=== PATIENT | male | born 1995 ===

== ENCOUNTER 2017-08-08 19:01 | Inpatient (IN) | payer MEDICAID, OTHER ==
[~2017-08-08] VITALS: Ht 167.6 cm; Wt 70.5 kg
[2017-08-09] MEDS ORDERED: Benzocaine-Menthol Lozenge 2/Pkg PO PRN (03:20)
[2017-08-09] MEDS ORDERED: Magnesium Hydroxide 10 mL Oral Concentration PO PRN (03:20)
[2017-08-09] MEDS ORDERED: Alum-Mag Hydrox-Simeth 30 mL Suspension PO PRN (03:20)
--- NOTE | 2017-08-09 04:32 | NUR ---
Observations 1900- 0700 Pt arrived in the morning escorted by two police officers. Pt has bandage on foot and has an impaired gait. Pt appears guarded and paranoid. Belongings were documented. Pt escorted to room. Pt currently appears asleep in bed. Staff completed 15 min close observations a ordered. Addendum: 08/09/17 at 0617 by NAZARIO PETER [facility] At 0615 safety check, it was observed by this principal technical writer that pt is sitting in corner in room staring at ceiling unclothed. Pt has also taken off all bandages from foot at this time. Notified pt's RN.
[2017-08-09] MEDS ORDERED: BENZ2TAB7 PO (04:54)
[2017-08-09] MEDS ORDERED: OLAN10TA19 PO (04:55)
[2017-08-09] MEDS ORDERED: OLAN20TA16 PO (04:56)
[2017-08-09] MEDS ORDERED: HALO100V4 IM (05:00)
--- NOTE | 2017-08-09 06:25 | NUR ---
Admission Note Patient is a 21 year old gravely disabled involuntary male presenting to this unit with psychosis who came from [facility] ED in [facility]. He is on a 72 hour GREGORIO initiated at 1748 on 08/08/17. Patient was reported to have been acting strangely, "doing weird stuff...he kicked off his shoe and then licked his shoe" per grandmothers report to [facility] in [facility]. He was incoherent, talking fast, did not recognize grandmother. He had jumped over the bed and twisted his ankle, which was later confirmed fractured and patient was provided with a soft splint. He had wandered into a strangers apartment and was found sleeping there, LE was called and he was brought to the ED. Patients father reported that he has been off of his medications for approximately one week due to reported negative side effects. He has a history of schizophrenia and was on an LRA until the end of April 2017. He has a hx of prior psychiatric inpatient treatment at [facility], as well as one year at [facility]. While in restraints at [facility], patient was noted to be trying to bite the restraints and chew them off, not following directions, acting impulsively, agitated and not sleeping. Per [facility] report, it was noted that he was responding to internal stimuli and appeared to be hallucinating. UTox was positive for marijuana. Patient arrived on unit with LE escort and hospital security at 0250. He was provided juice and oriented to his room. He was guarded and suspicious towards staff, but cooperative when escorted to room. Patient is ambulatory and independent with ADLs. He was given Zyprexa 20 mg and Vistaril 50 mg at 0355 with little relief. As a result of patient being a poor historian, admission completed using collateral information. Admission paperwork needs to be signed by patient when more compensated.
[2017-08-09 09:59] VITALS: BP 124/80; PULSE 92; RESP 20
--- NOTE | 2017-08-09 11:55 | NUR ---
Lead Military Analyst D:The patient met the doctor and lead technical writer and stated they he believes he hurt his ankle by playing flag football. The patient was lying on his bed with his pants off during the interview and had delayed and garbled responses at times. He reports no ETOH, but marijuana use. The psychiatrist will be getting a hospitalist to further evaluate the patient's ankle for potential surgery. A:garbled speech, indifferent, confused, P: Monitor behavior, encourage program participation, stabilize medications
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
--- NOTE | 2017-08-09 13:53 | HP ---
[address] [address] HISTORY AND PHYSICAL PATIENT: SOLITARIO CHAN : 1995 MR#: [id number] ADMIT: 08/09/2017 JOB ID: [id number] INITIAL EVALUATION: IDENTIFICATION OF PATIENT: The patient is a 21-year-old male admitted via transfer from [facility] with noted significant concern of grave disability and significant psychoses. The patient reportedly has a long-term history of recent diagnosis of paranoid schizophrenia. CHIEF COMPLAINT: "I don't know why I am here." HISTORY OF PRESENT ILLNESS: As stated above, the patient is a 21-year-old male who reportedly was admitted under a petition to revoke with previous history of schizophrenia. The patient reportedly was brought to the emergency department per grandmother's report with odd and unusual behavior including taking off his shoe and licking it. He was unable to identify his grandmother. He reportedly has a history of a recent fractured ankle while playing flag football, and per report, orthopedic surgeons in [facility] have recommended surgical interventions which will be followed up this afternoon with hospitalists. The patient reportedly was often also being found in strangers apartments in his local apartment complex. Per documents: the patient has had a previous psychiatric history including admissions to [facility] and one year length of stay at [facility]. Evidently the patient had a positive U tox screening for THC only and on admission to the emergency department and was placed in four-point restraints after various attempts of elopement. During the course of restraint, he was attempting to bite through the restraints. The patient had been given doses of Zyprexa with significant improvement. This morning the patient was essentially unable to complete the interview. He was speaking [facility] with noted visual tracking throughout the course of conversation, responding to internal stimulus. He was sitting in his room half naked and when asked direct questions, the patient was unable to complete answers. He appears to be floridly psychotic and has been given doses of Zyprexa 10 mg q. a.m. and 20 mg q.h.s. with little relief. Records will be sent for with previous placement options in [facility] and [facility]. PAST MEDICAL HISTORY: Is substantial for no allergies. MEDICATIONS: Of current include: 1. Zyprexa 10 mg q. a.m., 20 mg q.h.s. 2. Cogentin 2 mg b.i.d. p.r.n. He has a current fracture of an ankle and the orthopedic surgeon business process consultant at [facility] in [facility] has recommended surgical intervention. Consultation will be obtained. Hospitalists will be consulted for further care. PAST PSYCHIATRIC HISTORY: Substantial for the above information. He is on a LRA at this time through the end of April. SOCIAL HISTORY: Currently the patient lives at home of his father. He does have a positive history for marijuana smoking on a daily basis. Other drug history is unknown at this time. Abuse history was not reviewed. FAMILY HISTORY: Unknown. DEVELOPMENT HISTORY: He indicated that he did obtain a GED in the past through a [employer] college in [place]. MENTAL STATUS EXAMINATION: As noted above, the patient is sitting in his room half clothed. He makes intermittent eye contact. He is visual tracking and unable to respond to direct questions. His speech is unintelligible, loose, disorganized and gibberish. His thought process shows evidence of random flight of ideas, loose and disorganized thinking, evidence of word salad, evidence of thought blocking. Thought content: There was no evidence of suicidal or homicidal ideation. No evidence of elopement since his arrival here. The patient does appear to be quite paranoid. He is actively hallucinating with both visual and auditory sensation. He was alert, unable to identify place. He identified that he believed that he was in [place]. Insight and judgment are deemed poor. IMPRESSION: AXIS I 1. Schizophrenia, paranoid type. 2. Substance use disorder, not otherwise specified. 3. Cannabis use disorder. AXIS II Deferred. AXIS III History of fractured ankle requiring surgical consultation. AXIS IV Stressors are noted for chronic mental health issues, chronic substance use issues. AXIS V Global assessment of functioning of current 20. PLANS: 1. Recommendations for continuation of scheduled doses of Zyprexa 10 mg q. a.m., 20 mg q.h.s., Ativan 1 mg q.4 hours p.r.n., Vistaril 50 mg q.4 hours p.r.n. 2. Consultation with orthopedic surgical team and hospitalist for further recommendation followup. MTDD
--- NOTE | 2017-08-09 14:35 | PCM.CONORT ---
Subjective Date of Surgery: Aug 09, 2017 Surgeon Admitting Provider:Nixon Hendricks DO Attending Provider:Nixon Hendricks DO Primary Care Physician:Other,Physician Other Provider:Luiza Yañez Reason for Consultation: right ankle fracture Allergy Allergies: Coded Allergies: No Known Allergies (Unverified , 08/09/17) Medications Benztropine Mesylate (Benztropine Mesylate) 2 Mg Tablet 2 MG PO BID (Reported) Last Taken: Unknown Dose on Unknown Date & Time Haloperidol Decanoate ( Haloperidol Decanoate) 100 Mg/1 Ml Vial 100 MG IM (Reported) Last Taken: Unknown Dose on 06/10/17 Olanzapine (Olanzapine) 10 Mg Tablet 10 MG PO DAILY (Reported) Last Taken: Unknown Dose on Unknown Date & Time Olanzapine (Olanzapine) 20 Mg Tablet 20 MG PO HS (Reported) Last Taken: Unknown Dose on Unknown Date & Time History History of ENT Problems?: No HEENT History: Denies:: Abnormal Airway Cataracts Difficult Intubation Dysphagia Glaucoma Hearing Problem Sinus Problem TMJ Denture Type: None Teeth Condition: Within Normal Limits Hx of Heart Problems?: No Cardiovascular History: Denies:: AICD Abdominal Aortic Aneurism Atrial Fibrillation Cardiac Surgery Chest Pain Congestive Heart Failure Coronary Artery Disease Edema Heart Murmur Hypertension Irregular Heartbeat Pacemaker Peripheral Vascular Rheumatic Fever Thrombophlebitis Valvular Heart Disease Hx of Respiratory Problem?: No Respiratory History: Denies:: Asthma COPD Chest Surgery Cough Dyspnea Emphysema Hemoptysis Oxygen Administration Pneumonia Pulmonary Embolism Tuberculosis Use of C-PAP Machine Use of Inhalers / NEBS Hx Neurologic Problems?: No Neurological History: Denies:: Alzheimer's Disease CVA Dementia Dizziness Headaches Multiple Sclerosis Parkinson's Disease Peripheral Neuropathy Seizures TIA Hx of GI Problems?: No Gastrointestinal History: Denies:: Cirrhosis Diverticulitis Gall Bladder Disease Gastroesphageal Reflux Gastrointestinal Bleeding Heartburn Hepatitis Hiatal Hernia Liver Disease Rectal Bleeding Hx of Problems?: No Genitourinary History: Denies:: HX of Hemodialysis Kidney Stones Urinary Tract Infection Male Hx: Denies:: Prostate Problems Scrotal Mass Testicular Surgery Skin History: Denies:: History Skin Disorders? Pressure Ulcers Hx Musculoskeletal Problems?: Yes Musculoskeletal History: Positive for:: Back Injury Degenerative Joint Fibromyalgia Joint Replacement Musculoskeletal Trauma Myasthenia Gravis Osteoarthritis Rheumatoid Arthritis Systemic Lupus Other History/Comment Saleem Bartlett is a 21 year old male patient who presents to the ER and a consult for orthopedic evaluation of the right ankle with ongoing symptoms was requested. The patient is schizophrenic and is poor historian and states that their pain is weird in nature and mild/moderate in severity localized to the medial aspect of the ankle without radiation. This has been progressing over the past few and may or may not be from playing football. He does not recall the injury. He has removed his splint and has been weight bearing. Moreover, the pain is exacerbated by activities, sometimes with walking. Rest seems to improve the symptoms. Patient reports no popping, no catching, noocking, or giving way. Previous treatment has included:splint which he has removed. There is no reports numbness, tingling, or weakness to the affected distal lower extremity. The patient denies any fever, chills, nausea, vomiting, chest pain, shortness of breath, or calf tenderness. Work/hobbies/sports include: none Hx of Psycho/Social Problems?: No Hx Surgeries?: No Hx Any Other Health Problems?: No Other History: Positive for:: Hospitalization (psychiatric) Denies:: Cancer Endocrine Disease Thyroid Disease History Blood Transfusions: Denies:: Accept Blood Products? Blood Transfuse Reaction Blood Transfusions Hx Diabetes: No Hx Substance Use: Yes Objective Exam Vital Signs & I/O Vital Sign- Last 8 Hours Date Time Temp Pulse Resp B/P Pulse Ox O2 Delivery O2 Flow Rate FiO2 08/09/17 09:59 36.6 92 20 124/80 Review of Systems: Constitutional: Negative, except as otherwise mentioned in the history above. Ophthalmologic: Negative, except as otherwise mentioned in the history above. Cardiovascular: Negative, except as otherwise mentioned in the history above. Respiratory: Negative, except as otherwise mentioned in the history above. Gastrointestinal: Negative, except as otherwise mentioned in the history above. Genitourinary: Negative, except as otherwise mentioned in the history above. Musculoskeletal: Negative, except as otherwise mentioned in the history above. Neurological: Negative, except as otherwise mentioned in the history above. Psychiatric: Negative, except as otherwise mentioned in the history above. Hematologic/Lymphatic: Negative, except as otherwise mentioned in the history above. Allergic/Immunologic: Negative, except as otherwise mentioned in the history above. H&P Surgical Exam Exam Musculoskeletal: CONST: WD,WN, NAD, A+OX3 OCULAR: EOMI, no conjunctivitis/icterus ENT: no deformities, scars or lesions CARDIAC: Pulse is regular. No cyanosis,clubbing,edema RESP: regular,unlabored MSK: normal light touch SPN/DPN/TN distributions. 5/5 DF/PF/Inv/Ev, 2+ DP right Foot/Ankle - scars, + ecchymosis, +swelling, -erythema, - atrophy or asymmetry. TTP none alignment- neutral, gait: antalgic, edema- minimal ROM Strength/ Pain 20 deg DF 5/5 - 50 deg PF 5/5 - 35 deg Inv 5-/5 - 15 deg Ev 5-/5 - + effusion, +painful arc, -crepitus Signs instability on anterior/internal rotation drawer: - instability on anterior/external rotation drawer:- syndesmotic squeeze: - Prakash's: - Landa's: - Tinel's: - single limb heel rise: + patella tilt: - Additional Information 3 view xray demonstrates a displaced medial malleolus fracture H&P Preop Plan Impression right Ankle fracture Problems: Plan recommend 2 view xray of the tib/fib to r/o maisonneuve fracture Nonweightbearing to the affected extremity, discussed complications associated with noncompliance- patient does not seem to comprehend/care recommend walking boot but to remain nonweightbearing, recommend crutches or roller Pain control No acute surgical intervention indicated at this time Follow-up in clinic in 1 week to allow soft tissue swelling to resolve and discuss possible surgical intervention pt can f/u in clinic as outpatient Please keep the affected extremity elevated when possible. You may use ice and/or heat as needed for comfort. All questions and concerns were addressed. Please feel free to call with any further questions, comments, and/or concerns. Casimiro Marcial MD Aug 09, 2017 14:34
--- NOTE | 2017-08-09 15:40 | DRSVH ---
PROCEDURE: X-RAY RIGHT ANKLE, MINIMUM THREE VIEWS ([id number]) INDICATIONS: Recent Right Medial Malleolar Fracture TECHNIQUE: 3 views of the ankle were acquired. COMPARISON: None. FINDINGS: Bones: Intra-articular fracture involves the medial malleolar base with minimal lateral and moderate anterior displacement of the distal fracture component. No additional fracture seen. Soft tissues: No tibiotalar joint effusion. Achilles tendon appears normal. IMPRESSION: Displaced medial malleolar base fracture. Dictated by: Farooq Mobley Crow Interpreted: Jesi Simms MD on 08/09/2017 at 15:38 Transcribed by: TATIANNA on 08/09/2017 at 15:39 Approved by: Jesi Simms M.D. on 08/09/2017 at 17:31
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
--- NOTE | 2017-08-09 18:48 | NUR ---
[facility] Day Shift Pt has a difficult time maintaining behavioral control throughout the shift. Pt affect appears flat, blunt. Pt has a difficult time following instruction and frequently requires redirection. Pt frequently attempts to enter the hallway/dining room without proper clothing (naked, half naked, wearing a shirt for pants). Pt appears to have difficulty retaining information and tracking during conversations. Pt occasionally attempts to enter other pt's rooms. Pt does has not been hostile with or aggressive with staff or peers, but is occasionally intrusive during interactions. Pt occasionally engages in bizarre physicality. Pt passively attended group activities throughout the shift. Pt attended all meals and ate approx 10-30% of all meals.
--- NOTE | 2017-08-09 20:21 | NUR ---
Foot pain P: Pt requests ibuprofen for his foot I: When RN came down to the room with the ibuprofen, the pt stated, "I'm too tired to take it. Come back in 30 min." RN told the patient that if he wanted ibuprofen later tonight, then he would have to come speak to the nurse. E: Pt turned his head away. Eyes are closed.
--- NOTE | 2017-08-09 21:42 | DRSVH ---
PROCEDURE: X-RAY RIGHT TIBIA/FIBULA, TWO VIEWS ([id number]) INDICATIONS: maisonneuve fracture TECHNIQUE: 2 views of the tibia and fibula were acquired. COMPARISON: [facility], CR, XR ANKLE 3VW RT, 08/09/2017, 15:20. FINDINGS: Bones: There is a minimally displaced medial malleolar fracture. Intra-articular extension is present . Soft tissues: No suspicious soft tissue calcifications or masses. IMPRESSION: Minimally displaced intra-articular medial malleolar fracture. Dictated by: Estrellita Sarmiento M.D. on 08/09/2017 at 21:40 Approved by: Estrellita Sarmiento M.D. on 08/09/2017 at 21:41
[2017-08-10] MEDS: LORazepam 1 mg Tablet PO PRN ×2 (04:39→11:43)
--- NOTE | 2017-08-10 05:36 | NUR ---
Nursing Note Partner Integration Planner 9pm-7am Patient in room at start of shift. He came out to hallway in just his boxers and was seen standing at the door to another patient's room. Staff redirected patient to his room, brought him some clean scrubs to put on and requested that he wear the scrubs if he comes out of his room and was reminded to not enter other patient rooms. Patient initially appeared confused as to why scrubs were given to him and was mumbling and nonsensical, but after being told again, he agreed to wear scrubs if coming out of room. Patient also appeared to be responding to internal stimuli, talking to unseen persons and becoming increasingly agitated with them. He was knocking on doors and windows, throwing punches in the air and raising his voice. Patient's agitation was not directed toward staff. He was given Ambien 5 mg and prn Vistaril 50 mg at 0400, with no relief. He was also given prn Ativan 1 mg at 0439 with no effect. Pt monitored q 15 minutes for safety, location and accountability.
--- NOTE | 2017-08-10 09:24 | NUR ---
Seclusion Pt secluded @ 2372. Order obtained from Dr Hendricks @ 9188. Pt threw coffee against the wall, attempting to climb the unit door, wandering into other patients' rooms. Pt not responsive to redirection. Pt escorted to seclusion by show of force. He received morning medications with no effect. Pt stated he was attempting to find the "Truong Ring for a girl and I am bored."
[2017-08-10] MEDS ORDERED: Benztropine 1 mg/mL 2 mL Inj ONE (10:01)
[2017-08-10] MEDS: Benztropine 1 mg/mL 2 mL Inj IM PRN ×4 (10:11→22:14)
[2017-08-10] MEDS: Haloperidol 5 mg/mL Inj IM PRN ×3 (10:11→22:30)
[2017-08-10 12:00] VITALS: BP 138/73; PULSE 120; RESP 22
--- NOTE | 2017-08-10 12:19 | NUR ---
4 point restraints Pt throwing himself into the rhodes and hitting rhodes with his fist. Pt responding to internal stimuli. Pt expressing delusional thought per staff report he believes he is in a video game. Pt not responsive to attempts to de-escalate. Pt place into 4 point restraints @ 1020. Order obtained from Dr Hendricks at said time. Pt given emergent medication of IM Haldol 5mg/Ativan 1mg/Cogentin 1mg. Two separate injections received in both the right and left VL. Face to face observation. Q 15" circulation checks, ROM. Pt fighting restraints. Pt offered to toilet but declined. He accepted water and Ativan 1mg po prn an hour after initial restraint. He continues to respond to internal stimuli and maintains delusional thought content. Unable to debrief d/t psychosis. Pt continues in 4 pt restraints. Addendum: 08/10/17 at 1517 by BRIGIDA AARON RN 1420 Restraints continued. Order obtained from Dr Hendricks. Pt continues to respond to internal stimuli. He continues to fight and pull at restraints. He urinated all over himself. Staff assisted in clean up and provided clean clothing. Pt offered to toilet/fluids/food Q 2 hours but he has declined.
--- NOTE | 2017-08-10 12:52 | NUR ---
Apparatus Cleaner D:The patient was placed in seclusion and later restraints for self harm behaviors. He was trying to climb the rhodes of the seclusion room and eating scabs off his skin. The psychiatrist reviewed his [facility] chart, and believes he is at his baseline due to his 'spice' usage. The singer songwriter and and psychiatrist spoke to the patients father (Willy Bartlett: [phone]). His father would like him to discharge to his care and continue living with him. A:anxious and confused P:Monitor behavior, stabilize medications, encourage appropriate behaviors Addendum: 08/10/17 at 1304 by ANSHU STEWART RN Patient's father (Willy Bartlett) will pick the patient up on between 12:00-2:00pm for discharge.
--- NOTE | 2017-08-10 14:00 | PROG NOTE ---
[address] [address] PROGRESS NOTE PATIENT: SOLITARIO CHAN : 1995 MR#: [id number] ADMIT: 08/09/2017 JOB ID: [id number] DATE: 08/10/2017 CHIEF COMPLAINT: "I just wanna get out of here." This per patient report in reference to interview collected through the seclusion room. HPI: The patient reportedly has shown significant continued decompensation with noted gibberish language, attempting to self-harm by ripping off his scab, running into rhodes, hitting his head . He reportedly was attempting to ingest his skin and scabs during the process of seclusion. He has shown significant limited response to medications including Zyprexa 10 mg q. a.m. and 20 mg q.h.s. The patient reportedly has received IM injections of Haldol, Ativan, Cogentin and continues to show significant loose and disorganized presentation. I did speak with the father via teleconference along with the ammunition supervisor, Leti Voss, and obtained previous history. Per report the patient does have a guardian assigned to the father who is also the payee. The patient reportedly after his one year of residence at [facility] resided in a long-term for approximately three months and later moved into the home with the father. The father indicated that the patient did elect to discontinue his medications due to concerns about side effects within the past two weeks and father states that he rapidly decompensated. He did receive his injection of Haldol Decanoate within the past week of doses of 200 mg , but the father indicated that he essentially feels that the Zyprexa has too many side effects. I have discussed with father implementation of scheduled doses of Haldol in addition to his injections and I do feel the patient is more than likely a rapid metabolizer, based on review of [facility] labs etc. Discussion was held with the father about the plan and intent to discharge the patient back to father's care. There was agreement and feeling that the patient is not a likely candidate to benefit from continued hospitalization, and would do best in his own environment with father. I do feel that the patient could be maintained in a less restrictive model with continuation of outpatient interventions provided by his community based psychiatrist with continuation of Haldol decanoate and further titration of oral doses of Haldol if so warranted. The patient's father did agree and stated that he will be able to pick him up tomorrow. OBJECTIVE: On mental status examination, as noted above, the patient is quite loose, disorganized. Seen running into rhodes and showing response to internal stimulus. He is seen during the process of seclusion and later restraint. He was not combative but showed significant imminent danger to himself by running into rhodes as if he was in a video game. His presentation is that of acute paranoia psychoses. He is actively hallucinating and responding to internal stimulus. There was no evidence of suicidal ideation, intent, or plan. He was alert, disoriented. Insight and judgment are deemed poor. PHYSICAL EXAMINATION: All vital signs are current. Temperature is 36.6, pulse 92, respirations 20, BP 124/80. MEDICATION REVIEW: Includes: Scheduled doses of Zyprexa 10 mg q. a.m., 20 mg q.h.s. He did receive Haldol Decanoate within the past five days of 200 mg. Haldol will be scheduled at 10 mg b.i.d. He has received p.r.n. doses of Ativan, Haldol and Cogentin. ASSESSMENT: AXIS I 1. Schizophrenia, paranoid type. 2. Polysubstance use disorder including cannabis and spice. AXIS II Deferred. AXIS III None. AXIS IV Stressors are noted for chronic substance use of prior, significant history of chronic mental health issues. AXIS V Global assessment of functioning of current 35. PLANS: 1. Recommendations to discharge to the care of the father with continuation of least restrictive model of community based mental health services including medication management, case management. 2. Implementation of Haldol scheduled 10 mg b.i.d., Cogentin 1 mg b.i.d. as well as continuation of Haldol decanoate. 3. Recommendations for continuation of Zyprexa 10 mg q. a.m. and 20 mg q.h.s., however, consideration of discontinuation based on the patient's history of noncompliance due to significant side effects will be deferred to his outpatient psychiatrist. LILIAM
[2017-08-10] MEDS ORDERED: LORazepam 1 mg Tablet PO PRN (15:20)
--- NOTE | 2017-08-10 17:20 | PCM.PNMED ---
Subjective Date of Service Aug 10, 2017 Subjective Pt has been walking on foot despite education to avoid weightbearing. Exam Vital Signs Vital Sign - Last Date Time Temp Pulse Resp B/P Pulse Ox O2 Delivery O2 Flow Rate FiO2 08/09/17 09:59 36.6 92 20 124/80 Exam General: agitated, 4 point restraints. Confused, rambling answers, tangential thought Head: NC/AT Mouth: Mouth Normal, Mucous Membr Moist/[place] Abdomen: Non-tender, Non-distended, No masses Musculoskeletal: Normal Range of Motion, Ankle (Pain Medial Surface, with swelling and bruising along medial surface. ) Extremities: Tenderness/Swelling Noted (R Ankle Medial Surface) IVs and Medications Medications Reviewed: Medications were reviewed in detail Lab and Diagnostics X-Rays, CTs and MRIs 08/09/17 X-RAY RIGHT ANKLE, MINIMUM THREE VIEWS Bones: Intra-articular fracture involves the medial malleolar base with minimal lateral and moderate anterior displacement of the distal fracture component. No additional fracture seen. Soft tissues: No tibiotalar joint effusion. Achilles tendon appears normal. IMPRESSION: Displaced medial malleolar base fracture. 08/09/17 X-RAY RIGHT TIBIA/FIBULA, TWO VIEWS Bones: There is a minimally displaced medial malleolar fracture. Intra- articular extension is present. Soft tissues: No suspicious soft tissue calcifications or masses. IMPRESSION: Minimally displaced intra-articular medial malleolar fracture. Assessment & Plan 31-year-old male history of Schizophrenia off medications, marijuana use admitted to [facility] mental health for acute psychosis and with finding displaced R medial malleolus fracture confirmed on X-Ray. Displaced R medial malleolus fracture, poa, active Unclear exactly when sustained injury. Complicated by pt's non-adherence due to Psychosis. Consulted Ortho, Dr. Casimiro Marcial. No acute surgical intervention indicated at this time. 2 view xray of the tib/fib- no fracture. Recommend walking boot, pt non-adherent to boot. Encourage to remain nonweightbearing, recommend crutches or roller. Will need to follow-up with Orthopedic Surgery, Dr. Casimiro Marcial, in 1 week to allow soft tissue swelling to resolve and discuss possible surgical intervention. Continue Ibuprofen for pain. Upon discharge, spoke with father about making above follow up appointment and also buying Crutches so patient can avoid weight bearing until seen by Garrison Pearson MD Aug 10, 2017 17:20
--- NOTE | 2017-08-10 18:37 | NUR ---
Evening Nurse Note: Pt In 4 pt restraints in the seclusion room with the door open at the beginning of the shift. Pt monitored q15 min for circulation and safety with a 1:1 sitter. Pt checked by RN q2hr, for good circulation, pulses, capillary refill on fingers and toes. Pt had arms and legs released q2hr for ROM and offered bathroom and drinks of water. Pt continues to bang wrists on bed, mumble incoherently and thrash around, but has fallen asleep a couple of times about 10 minutes each time, only to wake up and yell again.
[2017-08-10 18:59] VITALS: BP 138/73; PULSE 120; RESP 22
--- NOTE | 2017-08-11 00:48 | NUR ---
seclusion note nursing 11-7 s- yes. what will you do. o- at 2245 patient is in 4 point restraint with one to one staff direct observation and q 15 minute assessments. appears to exhaust himself and rest quietly then wake agitated and incoherent fighting restraints. is unable to effectively express his needs beyond short responses giving mostly grunts, mutters and mumbles. at 2345 accepted 120 ml of water, displayed adequate rom, declined the toilet. accepted release of right foot at midnight. continues to cycle calm to agitated in 10 to 15 minute intervals. a- responding to internal stimuli, disoriented about situation, unable to display and maintain safe appropriate behavior for return to the open milieu. no apparent physical distress. p- attempt to reorient to his situation and behavioral expectations. maintain safety and assist with adl's. return to open milieu when behavior allows. dina Addendum: 08/11/17 at 0148 by JOANA EMMANUEL RN released left wrist restraint which he initially resisted but calmed and allow it with staff reassurance. declined fluids and toilet. able to reposition himself in a more comfortable position with a pillow and blanket. is currently resting quietly. dina Addendum: 08/11/17 at 0244 by JOANA EMMANUEL RN released left wrist at 0130. appears more comfortable. did not appear to understand attempt to debrief and encourage return to his room. complied with removal of restraints. is currently resting on bed with episodes of restlessness. remains in seclusion for safety to allow further assessment of behavior and ability to safely return to the open milieu. dina Addendum: 08/11/17 at 0246 by JOANA EMMANUEL RN this note was titled seclusion in error this is a restraint note with restraint ending at 0200. dina
--- NOTE | 2017-08-11 03:06 | NUR ---
seclusion nursing 11-7 s/o- dr. durant informed of patients condition and seclusion initiated at 0200. patient mutters unintelligibly or is unresponsive when staff tries to orient the patient or encourage return to his bed on the open unit. repositions self frequently on bed muttering to himself at times. has direct line of sight observation with one to one staffing. a- disorientated, disorganized, internally preoccupied, no apparent physical distress. p- assist with orientation to situation and behavioral expectations to allow returnt to the open milieu. dina
--- NOTE | 2017-08-11 09:56 | PCM.DIMED ---
Discharge Instructions Date of Service Aug 11, 2017 Dates of Hospitalization Aug 09, 2017 at 02:56 Discharge Diagnosis Discharge Diagnosis Schizophrenia, Paranoid type Polysubstance Use DO with both THC and Synthetic Cannabanoids Diet Discharge Diet: No restrictions Activity Discharge Activity: No restrictions Nixon Hendricks DO Aug 11, 2017 09:56
[2017-08-11] MEDS ORDERED: HALO100V4 IM (10:00)
[2017-08-11] MEDS ORDERED: BENZ1TAB7 PO (10:00)
[2017-08-11] MEDS ORDERED: HALO10TA PO (10:00)
[2017-08-11] MEDS ORDERED: OLAN10TA19 PO (10:00)
[2017-08-11] MEDS ORDERED: OLAN20TA16 PO (10:00)
[2017-08-11 14:00] VITALS: BP 125/81; PULSE 128; RESP 16
--- NOTE | 2017-08-11 15:09 | DIS ---
[address] [address] DISCHARGE SUMMARY PATIENT: SOLITARIO CHAN : 1995 MR#: [id number] ADMIT: 08/09/2017 JOB ID: [id number] DIS: 08/10/2017 ADMITTING DIAGNOSES: Include: AXIS I: 1. Schizophrenia, paranoid type. 2. Substance use disorder, not otherwise specified. 3. Cannabis use disorder. AXIS II: Deferred. AXIS III: History of fractured ankle. AXIS IV: Stressors are noted for chronic mental health issues, chronic substance use issues. AXIS V: Global Assessment of Functioning, current, 20. DISCHARGE DIAGNOSES: Include: AXIS I: 1. Schizophrenia, paranoid type. 2. Substance use disorder, not otherwise specified. 3. Cannabis use disorder. AXIS II: Deferred. AXIS III: History of fractured ankle. AXIS IV: Stressors are noted for chronic mental health issues, chronic substance use issues. AXIS V: Global Assessment of Functioning, current, 40. REASON FOR ADMISSION: Patient was a 21-year-old male admitted via transfer from [facility] with significant status of grave disability and significant psychoses. During the course of hospitalization, the patient's history was reviewed with noted previous length of stay at [facility] for greater than one year and transitioned through a local [facility] in [place]. He reportedly resided in the [facility] for approximately three months and later was transitioned to the home of his father. Most recently, the patient per father's report had discontinued his Zyprexa due to contributory side effects including dizziness, lightheadedness. He reportedly had shown significant rapid decompensation despite utilization of Haldol Decanoate 200 mg which was given approximately three days prior to admission. During the course of hospitalization, patient initially presented as loose, disorganized, paranoid, and speaking with unintelligible statements. He did escalate to the point of disorientation and began running into rhodes as if he were in a video game. The patient was eventually placed in seclusion and restraints due to concerns that he would only ultimately harm himself. He was given injections of Haldol IM, Cogentin and Ativan, and eventually stabilized over 24 hours. Conversations were held with the father about the patient's previous history of utilization of substances including cannabis and Spice throughout much of his teen years and early 20s. It was felt that the patient's behavior was that of baseline and that he would benefit from continuation of community based services including a possible return to a [facility] placement. I did not feel that the patient would benefit from continued hospitalization due to factors of disorientation and the absence of support from his family members. Father was agreeable to shredder picker the patient later on in the afternoon on the day of discharge with a continuation of interventions provided by a community based case management and medication management and possible pursuit of mcfp placement. CONDITION ON THE TIME OF DISCHARGE: Patient continued to be quite loose, disorganized, but was much more agreeable with coordination with staff. He was excited to return to his home environment. His speech was slurred at points but much more directable. His mood was neutral. His affect was congruent. His thought process showed evidence of loose and disorganized thinking. No evidence of current flight of ideas, racing thoughts. His thought content: There has been no reference of suicidal or homicidal ideation. No evidence of agitation aggression. He continues to present as delusional and actively hallucinating with responding to internal stimulus but has agreed to all medication interventions. He was alert, oriented to person. Insight and judgment were deemed poor. PLAN: 1. Recommendations to discharge to the care of the father who is legal guardian. 2. Continuation of followup care with [facility] for case management and medication management. 3. Recommendations for strong support of return to mcfp placement through his local community team based on his significant inability to stabilize in the father's home. 4. Recommendations for continuation of doses of Haldol 10 mg b.i.d., one month supply given. No refills. Reason for usage, antipsychotic. 5. Continuation of Cogentin 1 mg b.i.d., one month supply, no refills. Reason for usage: EPS. 6. Continuation of Zyprexa 10 mg q.a.m. 20 mg q.h.s., one month supply, no refills. Reason for usage: Antipsychotic, Dual Antipsychotic with pointed indication to eventually taper and discontinue Zyprexa with primary utilization of Haldol. 7. Recommendations for continuation of Haldol Decanoate; last injection prior to admission 200 mg q. month. MTDD
--- NOTE | 2017-08-11 15:57 | PCM.PNMED ---
Subjective Date of Service Aug 11, 2017 Subjective Not agitated. Ambulating with boot and crutches. Exam Vital Signs Vital Sign - Last Date Time Temp Pulse Resp B/P Pulse Ox O2 Delivery O2 Flow Rate FiO2 08/11/17 14:00 36.4 128 16 125/81 Exam General: Pt alert and awake. Not agitated. Ambulating with boot and crutches. Head: NC/AT Mouth: Mouth Normal, Mucous Membr Moist/[place] Abdomen: Non-tender, Non-distended, No masses Musculoskeletal: RLE- Walking boot, pt using crutches. IVs and Medications Medications Reviewed: Medications were reviewed in detail Lab and Diagnostics X-Rays, CTs and MRIs 08/09/17 X-RAY RIGHT ANKLE, MINIMUM THREE VIEWS Bones: Intra-articular fracture involves the medial malleolar base with minimal lateral and moderate anterior displacement of the distal fracture component. No additional fracture seen. Soft tissues: No tibiotalar joint effusion. Achilles tendon appears normal. IMPRESSION: Displaced medial malleolar base fracture. 08/09/17 X-RAY RIGHT TIBIA/FIBULA, TWO VIEWS Bones: There is a minimally displaced medial malleolar fracture. Intra- articular extension is present. Soft tissues: No suspicious soft tissue calcifications or masses. IMPRESSION: Minimally displaced intra-articular medial malleolar fracture. Assessment & Plan 31-year-old male history of Schizophrenia off medications, marijuana use admitted to [facility] mental health for acute psychosis and with finding displaced R medial malleolus fracture confirmed on X-Ray. Displaced R medial malleolus fracture, poa, active Unclear exactly when sustained injury. Complicated by pt's non-adherence due to Psychosis. Consulted Ortho, Dr. Casimiro Marcial. No acute surgical intervention indicated at this time. 2 view xray of the tib/fib- no fracture. Recommend walking boot, pt non-adherent to boot. Encourage to remain nonweightbearing, recommend crutches or roller. Will need to follow-up with Orthopedic Surgery, Dr. Casimiro Marcial, in 1 week to allow soft tissue swelling to resolve and discuss possible surgical intervention. Continue Ibuprofen for pain Spoke with father about making above follow up appointment and using Crutches and boot so patient can avoid weight bearing until seen by Dr. Marcial. Stable for discharge from medical perspective. Garrison Ovalle MD Aug 11, 2017 15:57
--- NOTE | 2017-08-11 18:04 | NUR ---
S Day Shift Pt in seclusion throughout most of the shift. Pt returned to the main unit in the afternoon. Pt spends most of the shift engaging with staff for DC planning and wound care. When not engaged with staff, pt appears asleep. Pt is more appropriate with staff and peers than noted on previous shift and has not required close observation/1:1 observation. Pt has declined to eat meals throughout the shift, but has eaten small snacks throughout the shift.
--- NOTE | 2017-08-11 19:16 | NUR ---
Nursing Notes-Day shift. S: "Is my dad coming to take me home"? O: Father scheduled to steel pickler patient between noon and 2pm today-father has still not arrived at 7pm. Patient seclusion discontinued at 11:00. Patient reporting he does not remember how he hurt his ankle or arm, where he is, or why he was in seclusion. Patient drinking, but eating very little. Patient has a fractured Rt ankle, with a walking boot and crutches. Patient must be reminded to stay non-weight baring. Denies anxiety, depression, hallucinations, SI/HI. A: Patient cooperative, appropriate, requesting his scheduled meds, P: Monitor for safety and response to treatment. Follow plan of care. Addendum: 08/11/17 at 1920 by EMMA CARLSON RN PRN's 13:27 Haldol 10 mg po. 13:47 Cogentin 1 mg po. 13:32 Motrin 600 mg for ankle pain 05/22. Minimally effective ain reduced to 04/22.
--- NOTE | 2017-08-11 20:18 | NUR ---
Rn Triage/Counselor: S/O: Patient denies S/I and H/I. He denies visual hallucinations. Depression and anxiety were not rated. Patient's father is supposed to pick patient up today. Out-patient appointment: Jaquelin counselor at [facility], 08/18/17 at 8:00am. A: Patient is cooperative, disorganized, hopeful, poor insight, poor judgment. P: Follow the care plan, coordinate with out-patient providers.
--- NOTE | 2017-08-11 22:04 | NUR ---
Discharge Note - Nursing Pt discharged home to [place], [place] with father at 2140. Pt is alert and oriented x3, denies A/V H, and denies SI, HI plan or intent. Pt signed discharge paperwork, Discharge instructions reviewed with pt who verbalized understanding. Instructions Also reviewed with father, who is reportedly pt's guardian. Hard copy of prescriptions given to pt, belongings inventoried and signed for and home medications returned. Pt and father informed, per Ortho consult, pt is to f/u with an orthopedic surgeon in a week to address fracture in right ankle. Pt left with walking boot on right foot and crutches and instructed to limit weight bearing activities. Pt given ambien 5mg as requested before discharge so he could get some rest during the 3 hour car ride back to [facility]. Pt reports pain is 4/10 in response to Ibuprofen and Tylenol given at 2100.
== END 2017-08-11 21:40 | disposition home or self-care (01) | DRG 885 ==
LOC: MHC 08-09 02:56
PROVIDERS: ADMIT Psychiatry & Neurology Psychiatry; ATTEND Psychiatry & Neurology Psychiatry
DX: F20.0 Paranoid schizophrenia (principal); F12.90 Cannabis use, unspecified, uncomplicated; S82.51XA Displaced fracture of medial malleolus of right tibia, initial encounter for closed fracture; X58.XXXA Exposure to other specified factors, initial encounter; Y92.9 Unspecified place or not applicable